=== PATIENT | male | born 1990 | race Caucasian/White ===

== ENCOUNTER 2023-07-06 12:43 | Outpatient (REF) | payer OTHER, SELFPAY ==
--- NOTE | ~2023-07-06 | XR_ITS ---
EXAMINATION: XR CHEST CLINICAL INFORMATION: ? PNEUMONIA COMPARISON: None available. TECHNIQUE: 2 views of the chest were obtained. FINDINGS: The lungs are well expanded. No focal consolidation, effusion, edema, or pneumothorax. The cardiomediastinal silhouette is within normal limits for technique. No acute osseous abnormality. XR/XR chest 2V IMPRESSION: No evidence of pneumonia.
== END 2023-07-06 12:44 | disposition home or self-care (01) ==
LOC: HO.XRAY 12:43
PROVIDERS: PCP Internal Medicine; Visit Provider Internal Medicine
DX: R05.9 Cough, unspecified (principal); R09.02 Hypoxemia
CPT/HCPCS: 71046

== ENCOUNTER 2023-07-14 19:46 | Outpatient (REF) | payer OTHER, SELFPAY ==
--- NOTE | ~2023-07-14 | MR_ITS ---
EXAMINATION: MR KNEE WITHOUT CONTRAST, LEFT CLINICAL INFORMATION: Left knee pain COMPARISON: None available. TECHNIQUE: MRI of the knee without contrast was performed using routine sequences on a high-field scanner. FINDINGS: MENISCI: Medial Meniscus: Intact Lateral Meniscus: Intact LIGAMENTS: Cruciate: Intact Collateral: Intact EXTENSOR MECHANISM: Intact ARTICULAR CARTILAGE/BONE: Patellofemoral Compartment: Normal Medial Compartment: Normal Lateral Compartment: Normal JOINT FLUID AND BURSAE: Small Drake's cyst MR/MR knee LT wo con IMPRESSION: Trace Drake's cyst
== END 2023-07-14 19:47 | disposition home or self-care (01) ==
LOC: HO.MRI 19:46
PROVIDERS: PCP Internal Medicine; Visit Provider Internal Medicine
DX: M25.562 Pain in left knee (principal)
CPT/HCPCS: 73721

== ENCOUNTER 2023-07-23 09:50 | Outpatient (REF) | payer OTHER, SELFPAY ==
--- NOTE | ~2023-07-23 | XR_ITS ---
EXAMINATION: XR KNEE, LEFT CLINICAL INFORMATION: Pain in left knee. COMPARISON: MR left knee 07/14/2023. TECHNIQUE: AP standing view of bilateral knees. Lateral and sunrise views of the left knee. FINDINGS: LEFT KNEE: Minimal narrowing of the medial compartment. Moderate suprapatellar effusion. Mild asymmetric narrowing along the lateral aspect of the patellofemoral compartment on the sunrise view. AP STANDING VIEW OF THE RIGHT KNEE: Minimal narrowing of the medial compartment. XR/XR knee LT 3V IMPRESSION: 1. Moderate suprapatellar effusion left knee. 2. Mild degenerative changes left knee.
== END 2023-07-23 09:51 | disposition home or self-care (01) ==
LOC: HO.HOSX 09:50
PROVIDERS: Visit Provider Physician Assistant
DX: M22.2X2 Patellofemoral disorders, left knee (principal)
CPT/HCPCS: 73562; 99202

== ENCOUNTER 2023-07-23 11:06 | Outpatient (AMB) | payer OTHER, SELFPAY ==
--- NOTE | 2023-07-23 11:23 | A.OFFVIS_ITS ---
Vital Signs 07/23/23 11:27 Height 5 ft 3 in Weight 155 lb BMI 27.5 Intake Visit Reasons: New Pt - left knee pain Intake Note: Marvel a 32 year old male who presents today as a new patient for an evaluation of left knee pain. Patient reports a history of a dislocation years ago and 5 years after dislocation his meniscus when he twisted his knee on stairs. His pain has been getting worse and was seen by his PCP who ordered an MRI that he already had done. He has tried and failed PT. Allergies No Known Allergies Allergy (Verified 07/23/23 11:26) HPI HPI New Pt - left knee pain: Details: 32-year-old male who presents to the office today for evaluation of left knee pain. He reports he had a knee dislocation about 8 years ago where his meniscus dislocated when he twisted his knee on stairs. He states he has worsening pain in his knee and was seen by his PCP who ordered an MRI. He has tried physical therapy with no relief. 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 Review of Systems Const All systems reviewed & are unremarkable except as noted in HPI and below Physical Exam Vital Signs: BMI result Body Mass Index 27.5 Const General: cooperative, healthy appearing, comfortable, no acute distress, well de veloped and alert Orientation/consciousness: patient oriented x3 HEENT Head: Yes normal to inspection, Yes normocephalic and Yes atraumatic Eyes General: appearance normal, both eyes and all related structures Resp Effort & Inspection: normal respiratory effort and able to speak in complete sentences Cardio Rate: regular rate Peripheral pulses: Peripheral pulses 2+ throughout GI Palpation (GI): Soft to palpation Skin Lesions: no lesions Rashes: no rashes Neuro General: patient oriented x3 Extrem Other: Left knee: Skin intact, no erythema or joint effusion. Lateral retropatellar tenderness present. Full ROM with crepitus. Negative Jenaro?s. No ligamentous laxity. NVI. Results Reviewed Results Reviewed: XR knee LT 3V obtained in the office today IMPRESSION: 1. Moderate suprapatellar effusion left knee. 2. Mild degenerative changes left knee. MR knee LT wo con 07/14/23 IMPRESSION: Trace Drake's cyst Assessment & Plan Assessment & Plan (1) Patellofemoral disorders, left knee: Code(s): M22.2X2 - Patellofemoral disorders, left knee Category: Medical Plan We discussed options which include PT, NSAIDs and injections. The patient will defer on the injection today and proceed with PT and NSAIDs. If symptoms persist, the patient will contact me for an injection, otherwise, PRN. Orders: Orders XR knee LT 3V 07/23/23 M25.562 - Pain in left knee PT Evaluation and Treatment 07/23/23 M22.2X2 - Patellofemoral disorders, left knee Patient Instructions: Scribed for Yovani Funk PA-C, by Ricardo Barger medical billing manager, on 07/23/2023 at 11:00 AM EST. I, Yovani Funk PA-C, have personally reviewed and agree with the information entered by the scribe. Coding Level of Care Code New Pt Level 3 (38865) Diagnoses Patellofemoral disorders, left knee M22.2X2
[2023-07-23 11:27] VITALS: BMI 27.5
== END 2023-07-23 13:13 | disposition home or self-care (01) ==
PROVIDERS: PCP Internal Medicine; Visit Provider Physician Assistant
DX: M22.2X2 Patellofemoral disorders, left knee (principal)
CPT/HCPCS: 99203

== ENCOUNTER 2023-08-18 13:43 | Outpatient (AMB) | payer OTHER, SELFPAY ==
[2023-08-18 13:45] VITALS: BP 98/62; PULSE 94; O2SAT 95; BMI 25.7
--- NOTE | 2023-08-18 13:45 | MHC.OFFVIS ---
Vital Signs 08/18/23 13:45 Height 5 ft 3 in Weight 145 lb BMI 25.7 BP 98/62 Blood Pressure Location Lt brachial Position Sitting Pulse 94 Pulse Source Doppler Pulse Oximetry (%) 95 Oxygen Delivery Method Room Air Intake Visit Reasons: wheezing Allergies No Known Allergies Allergy (Verified 08/18/23 13:50) HPI HPI wheezing: Details: 32-year-old gentleman, former tobacco smoker, now vapes nicotine/THC presents describing an upper respiratory infection approximately 2 months prior, for about a week or so, then followed by what appears to be post viral bronchitis, further exacerbated by vaping concentrated THC, overall lasting approximately 1 and half months with symptoms resolved after stopping vaping concentrated THC. Patient denies prior personal or family history of lung disease. He denies significant environmental allergies. He is employed without significant exposure to industrial dusts. Patient states that at this time his respiratory status is essentially at baseline. His chest x-ray from June of 2023 with normal. 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 Review of Systems Card Denies dyspnea Resp Denies cough, Denies excessive phlegm production, Denies dyspnea and Denies wheezing Aller/Immun Denies wheezing Physical Exam Vital Signs: Last Vital Signs Pulse 94 08/18/23 13:45 BP 98/62 08/18/23 13:45 Pulse Ox 95 08/18/23 13:45 Oxygen Delivery Method Room Air 08/18/23 13:45 BMI result Body Mass Index 25.7 Const General: no acute distress and alert Nutritional Appearance: not obese Orientation/consciousness: Other orientation findings ( oriented) HEENT Head: Yes atraumatic Eyes General: appearance normal, both eyes and all related structures Sclerae: sclerae normal EOM: EOMs intact bilaterally Resp Effort & Inspection: normal respiratory effort and no use of accessory muscles Auscultation: clear to auscultation bilaterally Cardio Rate: regular rate Rhythm: regular rhythm Heart sounds: no gallops, no murmurs and no rubs Skin General skin exam: other ( warm) Extrem General: No clubbing, No cyanosis and No edema Assessment & Plan Assessment & Plan (1) Bronchitis: Code(s): J40 - Bronchitis, not specified as acute or chronic Category: Medical Plan: Likely bacterial post viral bronchitis, now resolved and essentially at baseline. Patient has been advised on potential dangers of vaping. Follow-up as needed. Coding Level of Care Code New Pt Level 3 (23214) Diagnoses Bronchitis J40
== END 2023-08-18 14:07 | disposition home or self-care (01) ==
PROVIDERS: PCP Internal Medicine; Visit Provider Internal Medicine Pulmonary Disease
DX: J40 Bronchitis, not specified as acute or chronic (principal)
CPT/HCPCS: 99203

== ENCOUNTER → 2023-08-18 13:43 | Outpatient (BNVA) | payer OTHER, SELFPAY | PROVIDERS: PCP Internal Medicine; Visit Provider Internal Medicine Pulmonary Disease | DX: J40 Bronchitis, not specified as acute or chronic (principal) | CPT/HCPCS: 99202 ==

== ENCOUNTER 2023-08-27 09:00 | Outpatient (RCR) | payer OTHER, SELFPAY ==
--- NOTE | 2023-07-28 17:37 | MHC.PT.EP ---
[facility] [place] Office [place] Office [place] Office [address] Juan Mckeon [address] [phone] F: [phone] F: [phone] F: [phone] F: [phone] Physical Therapy Plan of Care Date of Evaluation: 07/28/23 Date of Surgery: Diagnosis: Patellofemoral disorders L knee. Assessment: Pt is a 32 y/o male referred to PT for eval and treat of Patellofemoral disorders L knee which is resulting in decreased tolerance for carrying objects of weight, standing and walking for duration, performing preferred fitness and recreational activities, and running secondary to TTP of L lateral knee, pain with activity, decreased B hip and L knee strength. Pt is deemed an appropriate candidate to receive skilled PT services to address their physical impairments in order to improve their functional ability. Frequency and Duration: The patient will be seen 2 x/ wk x 5 wks. Short Term Goals: initiate home program. Improve baseline pain from 4/10 to < 3/10. Long-Term Goals: I with home program. Improves LEFI by at least 9 points. Pt will be able to carry objects of weight with managed Sx. Pt will be able to walk a mile with managed Sx; initial moderate difficulty. Improve L knee Ext MMT by at least 1/2 MMT grade; initial 4-/5 and painful. Treatment Plan: Modalities to reduce pain, spasms and effusion. Manual therapy to restore motion and function. Therapeutic exercise to improve strength and flexibility. Neuromuscular re-education for posture and balance. Therapeutic activities to return to functional activities of daily living. Electronically signed by: Piter Saenz PT. Please sign and return to therapist. Thank you for your referral.
--- NOTE | 2023-08-27 11:15 | MHC.PT.DC ---
[facility] [place] Office [place] Office [place] Office [address] Juan Mckeon [address] [facility] [phone] F: [phone] F: [phone] F: [phone] F: [phone] Physical Therapy Discharge Report Diagnosis: Patellofemoral disorders L knee. Date of Surgery: Date of Evaluation: 07/28/23 Date of Discharge: 08/27/23 Treatments to Date: 9 Cancellations to Date: No Shows to Date: Discharge Status: Achieved Goals Improved Function Independent with HEP Discharge Summary: Marvel has been an active and motivated participant in his therapy in and out of the clinic; we are in agreement with DC today as he has met his therapeutic goals, is I with his home program and managed of his symptoms. Electronically signed by: Piter Saenz PT Please sign and return to therapist. Thank you for your referral.
== END 2023-08-27 11:16 | disposition home or self-care (01) ==
LOC: HO.PT 09:00
PROVIDERS: PCP Internal Medicine; Visit Provider Physician Assistant
DX: M22.2X2 Patellofemoral disorders, left knee (principal)
CPT/HCPCS: 97110; 97112; 97161; 97530